=== PATIENT | female | born 1985 | race Caucasian/White ===

== ENCOUNTER → 2021-05-01 11:18 | Outpatient (CLI) | payer MEDICAID, SELFPAY ==
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
== END ==
PROVIDERS: PCP Family Medicine; Visit Provider Family Medicine
DX: M25.512 Pain in left shoulder (principal); M79.602 Pain in left arm; M25.522 Pain in left elbow; M25.532 Pain in left wrist; M25.572 Pain in left ankle and joints of left foot; M79.672 Pain in left foot; M54.50 Low back pain, unspecified; V89.2XXA Person injured in unspecified motor-vehicle accident, traffic, initial encounter
CPT/HCPCS: 72100; 73030; 73090; 73110; 73130; 73600; 73620

== ENCOUNTER → 2022-05-29 10:13 | Outpatient (CLI) | payer MEDICAID, SELFPAY ==
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
== END ==
PROVIDERS: PCP Family Medicine; Visit Provider Orthopaedic Surgery
DX: M25.511 Pain in right shoulder (principal)
CPT/HCPCS: 73030

== ENCOUNTER → 2022-05-29 13:30 | Outpatient (CLI) | payer MEDICAID, SELFPAY ==
[2022-05-29 19:50] LABS: Amphetamine/Metha Screen,Urine Negative ng/ml (<1000)
[2022-05-29 19:51] LABS: Barbiturates Screen,Urine Negative ng/ml (<200); Benzodiazepines Screen,Urine Negative ng/ml (<200)
[2022-05-29 19:52] LABS: Cannabinoid Screen,Urine Negative ng/ml (<50)
[2022-05-29 19:53] LABS: Cocaine Screen,Urine Negative ng/ml (<300); Methadone Screen,Urine Negative ng/ml (<300)
[2022-05-29 19:54] LABS: Opiate Screen,Urine Positive ng/ml (<300)
[2022-05-29 19:55] LABS: Phencyclidine Screen,Urine Negative ng/ml (<25)
== END ==
PROVIDERS: PCP Family Medicine; Visit Provider Family Medicine
DX: S46.911A Strain of unspecified muscle, fascia and tendon at shoulder and upper arm level, right arm, initial encounter (principal)
CPT/HCPCS: 80305

== ENCOUNTER → 2022-06-08 09:02 | Outpatient (CLI) | payer MEDICAID, SELFPAY ==
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
== END ==
PROVIDERS: PCP Family Medicine; Visit Provider Orthopaedic Surgery
DX: M25.511 Pain in right shoulder (principal); S46.911A Strain of unspecified muscle, fascia and tendon at shoulder and upper arm level, right arm, initial encounter
CPT/HCPCS: 73040; 73222; A9576; Q9967